=== PATIENT | female | born 1985 | race Two or more races ===

== ENCOUNTER 2017-08-25 11:45 | Observation (INO) | payer MEDICAID, OTHER ==
[2017-08-26 00:54] LABS: Urine Bacteria MANY /hpf (None Seen); Urine Blood 1+ /uL (Negative); Urine Mucus FEW (None Seen); Urine Specific Gravity 1.019 (1.001-1.035); Urine WBC 372 /hpf (0 - 5); Urine WBC Clumps PRESENT /hpf (None Seen)
[2017-08-26 01:08] LABS: Alcohol, Urine < 3.0 mg/dL (0-5); Amphetamine Screen, Urine NEGATIVE (NEGATIVE); Barbiturate Scree,Urine NEGATIVE (NEGATIVE); Benzodiazephine Screen, Urine NEGATIVE (NEGATIVE); Cannabinoid Screen, Urine NEGATIVE (NEGATIVE); Cocaine Screen, Urine NEGATIVE (NEGATIVE); Opiate Scree,Urine NEGATIVE (NEGATIVE); Phencyclidine Screen, Urine NEGATIVE (NEGATIVE)
[2017-08-26] MEDS ORDERED: ACETAMINOPHEN 325 MG TAB PO ONE ×2 (01:10→01:15)
[2017-08-26] MEDS ORDERED: CEPHALEXIN 250 MG CAP PO ONE ×2 (01:11→01:15)
[2017-08-26] MEDS ORDERED: PHEN95TA12 PO (02:08)
== END 2017-08-26 01:37 | disposition home or self-care (01) | DRG 566 ==
LOC: LDRP 11:45
PROVIDERS: ADMIT Obstetrics & Gynecology; ATTEND Obstetrics & Gynecology
DX: O23.43 Unspecified infection of urinary tract in pregnancy, third trimester (principal); Z3A.30 30 weeks gestation of pregnancy
CPT/HCPCS: 59025; 80307; 81001; 81002; G0378

== ENCOUNTER 2017-09-15 19:07 | Observation (INO) | payer MEDICAID ==
[~2017-09-15 19:07] MED LIST: PHEN95TA12 PO
[2017-09-15 20:31] LABS: Basophils # (auto) 0 uL; Basophils % (auto) 0.4 % (0.0-2.0); Eosinophils # (auto) 0.1 uL; Hematocrit 40.5 % (36.0-46.0); Hemoglobin 13.4 g/dL (12.2-16.2); Lymphocytes % (auto) 23.3 % (10.0-50.0); Mean Corpuscular Hemoglobin 28.5 pg (28.0-32.0); Mean Corpuscular Hgb Conc. 33.1 g/dL (32.0-36.0); Mean Corpuscular Volume 86.1 fL (80.0-100.0); Monocytes # (auto) 0.9 uL; Monocytes % (auto) 10.7 % (0.0-12.0); Neutrophils # (auto) 5.6 uL; Neutrophils % (auto) 64.6 % (37.0-80.0); Nucleated Red Blood Cells % 0.2 %; Platelet Count (auto) 240 10^3/uL (140-450); Red Blood Cells 4.71 10^6/uL (4.0-5.20); Red Cell Distribution Width 14.5 % (11.8-14.3); White Blood Cell 8.6 10^3/uL (4.4-10.8)
[2017-09-15 20:49] LABS: INR 0.85 (0.9-1.15); Partial Thromboplastin Time 26.4 sec (23.78-33.04); Prothrombin Time 9.2 sec (9.27-12.13)
[2017-09-15 20:51] LABS: Albumin 2.2 g/dL (3.4-5.0); BUN/Creatinine Ratio 17.5; Bilirubin, Total 0.3 mg/dL (0.2-1.0); Calcium 8.1 mg/dL (8.5-10.1); Potassium 4.4 mmol/L (3.5-5.1); Total Protein 5.8 g/dL (6.4-8.2); Uric Acid 4.7 mg/dL (2.6-6.0)
[2017-09-15 21:18] LABS: Urine Bacteria FEW /hpf (None Seen); Urine Blood TRACE /uL (Negative); Urine Specific Gravity 1.007 (1.001-1.035); Urine WBC 3 /hpf (0 - 5)
[2017-09-15] MEDS ORDERED: BETAMETHASONE ACET (6MG/ML) 5ML VIAL IM ONE (21:30)
[2017-09-15] MEDS ORDERED: LABETALOL HCL 200 MG TAB PO ONE (21:30)
[2017-09-15] MEDS ORDERED: BETAMETHASONE ACET (6MG/ML) 5ML VIAL ONE (21:31)
[2017-09-15] MEDS ORDERED: PREN-153 OR (23:37)
[2017-09-15] MEDS ORDERED: LABE100T PO (23:37)
== END 2017-09-15 22:55 | disposition home or self-care (01) | DRG 566 ==
LOC: LDRP 19:07
PROVIDERS: ADMIT Specialist; ATTEND Specialist
DX: O13.3 Gestational [pregnancy-induced] hypertension without significant proteinuria, third trimester (principal); Z3A.33 33 weeks gestation of pregnancy
CPT/HCPCS: 36415; 59025; 76818; 80053; 81001; 81002; 84550; 85025; 85610; 85730; G0378; J0702

== ENCOUNTER 2017-09-16 18:45 | Observation (INO) | payer MEDICAID ==
[~2017-09-16] VITALS: Ht 30.5 cm; Wt 0.5 kg
[~2017-09-16 18:45] MED LIST changes: +LABE100T PO; +PREN-153 OR
[2017-09-16] MEDS ORDERED: LACTATED RINGER'S 1,000 ML IV SCH (18:53)
[2017-09-16] MEDS ORDERED: BETAMETHASONE ACET (6MG/ML) 5ML VIAL IM ONE (19:00)
[2017-09-16 20:04] LABS: Basophils # (auto) 0 uL; Basophils % (auto) 0.1 % (0.0-2.0); Eosinophils # (auto) 0 uL; Hemoglobin 13.2 g/dL (12.2-16.2); Lymphocytes # (auto) 1.6 uL; Lymphocytes % (auto) 12.2 % (10.0-50.0); Mean Corpuscular Hemoglobin 28.4 pg (28.0-32.0); Mean Corpuscular Volume 86.1 fL (80.0-100.0); Monocytes # (auto) 1.2 uL; Monocytes % (auto) 8.7 % (0.0-12.0); Neutrophils # (auto) 10.6 uL; Nucleated Red Blood Cells % 0.1 %; Platelet Count (auto) 265 10^3/uL (140-450); Red Blood Cells 4.65 10^6/uL (4.0-5.20); Red Cell Distribution Width 14.3 % (11.8-14.3); White Blood Cell 13.4 10^3/uL (4.4-10.8)
[2017-09-16 20:21] LABS: Albumin 2.5 g/dL (3.4-5.0); BUN/Creatinine Ratio 18.2; Bilirubin, Total 0.2 mg/dL (0.2-1.0); Calcium 9.1 mg/dL (8.5-10.1); Total Protein 6.3 g/dL (6.4-8.2); Uric Acid 5.6 mg/dL (2.6-6.0)
[2017-09-16 20:29] LABS: INR 0.86 (0.9-1.15); Partial Thromboplastin Time 24.4 sec (23.78-33.04); Prothrombin Time 9.3 sec (9.27-12.13)
[2017-09-16 20:45] LABS: Urine Bacteria MOD /hpf (None Seen); Urine Blood 1+ /uL (Negative); Urine Hyaline Cast FEW /lpf (0 - 2); Urine Mucus FEW (None Seen); Urine Specific Gravity 1.031 (1.001-1.035); Urine WBC 21 /hpf (0 - 5)
[2017-09-16 20:51] LABS: Amphetamine Screen, Urine NEGATIVE (NEGATIVE); Barbiturate Scree,Urine NEGATIVE (NEGATIVE); Benzodiazephine Screen, Urine NEGATIVE (NEGATIVE); Cannabinoid Screen, Urine NEGATIVE (NEGATIVE); Cocaine Screen, Urine NEGATIVE (NEGATIVE); Opiate Scree,Urine NEGATIVE (NEGATIVE); Phencyclidine Screen, Urine NEGATIVE (NEGATIVE)
[2017-09-16] MEDS ORDERED: LABETALOL HCL 200 MG TAB PO ONE (21:45)
== END 2017-09-16 23:24 | disposition short-term general hospital (02) | DRG 566 ==
LOC: LDRP 18:45
PROVIDERS: ADMIT Obstetrics & Gynecology; ATTEND Obstetrics & Gynecology
DX: O13.3 Gestational [pregnancy-induced] hypertension without significant proteinuria, third trimester (principal); O36.5930 Maternal care for other known or suspected poor fetal growth, third trimester, not applicable or unspecified; Z3A.33 33 weeks gestation of pregnancy
CPT/HCPCS: 36415; 59025; 76805; 76818; 80053; 80307; 81001; 81002; 84550; 85025; 85362; 85379; 85610; 85730; 96372; G0378; 96361; 96365; 96366